=== PATIENT | female | born 1965 | race Caucasian/White ===

== ENCOUNTER 2016-12-02 20:30 | Emergency (ER) | payer OTHER ==
[2016-12-02 21:01] VITALS: BP 129/88; PULSE 80; RESP 20; TEMP 98; O2SAT 98
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
== END 2016-12-02 21:37 | disposition home or self-care (01) ==
LOC: C.ER 20:30
DX: T76.21XA Adult sexual abuse, suspected, initial encounter (principal)

== ENCOUNTER 2017-01-13 19:49 | Emergency (ER) | payer OTHER ==
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
[2017-01-13 21:09] VITALS: BP 101/69; PULSE 74; RESP 18; TEMP 98.4
[2017-01-13 21:36] VITALS: O2SAT 98
== END 2017-01-13 21:10 | disposition home or self-care (01) ==
LOC: C.ER 19:49
DX: S70.12XD Contusion of left thigh, subsequent encounter (principal); Y08.89XD Assault by other specified means, subsequent encounter; Y04.1XXD Assault by human bite, subsequent encounter; K64.9 Unspecified hemorrhoids